=== PATIENT | male | born 1965 | race Caucasian/White ===

== ENCOUNTER 2021-11-06 14:51 | Emergency (ER) | payer MEDICARE, OTHER ==
[~2021-11-06] VITALS: Ht 188 cm; Wt 91.0 kg
[2021-11-06] MEDS ORDERED: HYDROXYZINE HCL25 MG PO (15:41)
[2021-11-06] MEDS ORDERED: METOPROLOL TAR100 MG PO (15:41)
[2021-11-06] MEDS ORDERED: DONEPEZIL HCL10 MG PO (15:41)
[2021-11-06] MEDS ORDERED: MELOXICAM15 MG PO (15:41)
[2021-11-06] MEDS ORDERED: DIAZEPAM5 MG PO (15:41)
[2021-11-06] MEDS ORDERED: BACLOFEN10 MG PO (15:41)
[2021-11-06] MEDS ORDERED: PROMETHAZINE HC25 M1 PO (15:42)
[2021-11-06] MEDS ORDERED: TAMSULOSIN HCL0.4 MG PO (15:42)
[2021-11-06] MEDS ORDERED: NORTRIPTYLINE H10 MG PO (15:42)
== END 2021-11-06 21:02 | disposition home or self-care (01) ==
LOC: ED 14:51
DX: F32.A Depression, unspecified (principal); R45.4 Irritability and anger; Z88.2 Allergy status to sulfonamides; Z88.5 Allergy status to narcotic agent; Z79.899 Other long term (current) drug therapy
CPT/HCPCS: 99283